=== PATIENT | female | born 1945 | race Asian ===

== ENCOUNTER 2022-10-02 09:17 | Outpatient (REF) | payer MEDICARE, OTHER, SELFPAY ==
--- NOTE | ~2022-10-02 | XR_ITS ---
EXAMINATION: XR HAND, BILATERAL CLINICAL INFORMATION: Pain. COMPARISON: None. TECHNIQUE: Left hand 3 views. Right hand 4 views. FINDINGS: Left Hand: There is a screw traversing the 1st IP joint. Hardware is intact. The joint space is not clearly visualized from marked narrowing/bony bridging. No evidence of acute fracture or dislocation. Postsurgical changes with lucencies in the distal radius. Nonunited ulnar styloid fracture fragment. Ulnar positive variance. There is arthritis present. Mild left and moderate radiocarpal arthritis. Severe triscaphe joint arthritis. Arthritis in the IP and DIP joints of fingers, with joint space narrowing, more prominent changes in the fifth DIP joint. No abnormal soft tissue calcification. Right Hand: Orthopedic hardware in the distal radius. Intact hardware. No evidence of acute fracture or dislocation is seen. Arthritis present. Moderate radiocarpal arthritis. Distal radioulnar articulation arthritis. Ulnar-positive variance. There is arthritis in the PIP and DIP joints of the fingers, more prominent changes in the third DIP joint, with joint space narrowing, small marginal osteophytes. Small chronic-appearing ossifications around the 3rd DIP joint. No marginal erosions seen. XR/XR hand RT min 3V IMPRESSION: LEFT HAND: *Postsurgical changes of the 1st IP joint. Marked joint space narrowing/bony fusion at the IP joint. *Arthritis present, with the appearance more suggestive of posterior arthritis, detailed above. *Nonunited ulnar styloid fracture. *No acute fracture or dislocation. RIGHT HAND: *No acute fracture or dislocation. *Arthritis present with the appearance suggestive of osteoporosis.
--- NOTE | ~2022-10-02 | XR_ITS ---
EXAMINATION: X-RAY BILATERAL SHOULDERS CLINICAL INFORMATION: Bilateral shoulder pain COMPARISON: None TECHNIQUE: Right shoulder 3 views. Left shoulder 4 views. FINDINGS: Right shoulder: No acute fracture or dislocation. Mild acromioclavicular arthritis. Glenohumeral joint space is maintained. Greater trochanteric spurring. No suspicious lung findings. Radiodense wires projected over the thoracic spine. Left shoulder: No acute fracture or dislocation. Moderate glenohumeral joint arthritis. Mild-moderate acromioclavicular arthritis. Few faint densities projected superior to the humeral head, could represent loose bodies, calcific tendinitis. Visualized left lung is clear.. XR/XR shoulder LT min 2V IMPRESSION: Right Shoulder: Mild acromioclavicular arthritis. No acute findings. Left shoulder: Moderate glenohumeral joint arthritis. Mild-moderate acromioclavicular arthritis. Faint densities projected superior to the humeral head could represent loose bodies versus calcific tendinitis.
--- NOTE | ~2022-10-02 | XR_ITS ---
EXAMINATION: X-RAY BILATERAL SHOULDERS CLINICAL INFORMATION: Bilateral shoulder pain COMPARISON: None TECHNIQUE: Right shoulder 3 views. Left shoulder 4 views. FINDINGS: Right shoulder: No acute fracture or dislocation. Mild acromioclavicular arthritis. Glenohumeral joint space is maintained. Greater trochanteric spurring. No suspicious lung findings. Radiodense wires projected over the thoracic spine. Left shoulder: No acute fracture or dislocation. Moderate glenohumeral joint arthritis. Mild-moderate acromioclavicular arthritis. Few faint densities projected superior to the humeral head, could represent loose bodies, calcific tendinitis. Visualized left lung is clear.. XR/XR shoulder RT min 2V IMPRESSION: Right Shoulder: Mild acromioclavicular arthritis. No acute findings. Left shoulder: Moderate glenohumeral joint arthritis. Mild-moderate acromioclavicular arthritis. Faint densities projected superior to the humeral head could represent loose bodies versus calcific tendinitis.
--- NOTE | ~2022-10-02 | XR_ITS ---
EXAMINATION: XR HAND, BILATERAL CLINICAL INFORMATION: Pain. COMPARISON: None. TECHNIQUE: Left hand 3 views. Right hand 4 views. FINDINGS: Left Hand: There is a screw traversing the 1st IP joint. Hardware is intact. The joint space is not clearly visualized from marked narrowing/bony bridging. No evidence of acute fracture or dislocation. Postsurgical changes with lucencies in the distal radius. Nonunited ulnar styloid fracture fragment. Ulnar positive variance. There is arthritis present. Mild left and moderate radiocarpal arthritis. Severe triscaphe joint arthritis. Arthritis in the IP and DIP joints of fingers, with joint space narrowing, more prominent changes in the fifth DIP joint. No abnormal soft tissue calcification. Right Hand: Orthopedic hardware in the distal radius. Intact hardware. No evidence of acute fracture or dislocation is seen. Arthritis present. Moderate radiocarpal arthritis. Distal radioulnar articulation arthritis. Ulnar-positive variance. There is arthritis in the PIP and DIP joints of the fingers, more prominent changes in the third DIP joint, with joint space narrowing, small marginal osteophytes. Small chronic-appearing ossifications around the 3rd DIP joint. No marginal erosions seen. XR/XR hand LT min 3V IMPRESSION: LEFT HAND: *Postsurgical changes of the 1st IP joint. Marked joint space narrowing/bony fusion at the IP joint. *Arthritis present, with the appearance more suggestive of posterior arthritis, detailed above. *Nonunited ulnar styloid fracture. *No acute fracture or dislocation. RIGHT HAND: *No acute fracture or dislocation. *Arthritis present with the appearance suggestive of osteoporosis.
[2022-10-02 11:23] LABS: MANUAL DIFF FLAG NO
[2022-10-02 11:46] LABS: Basophils Percent Auto 0.6 % (0-2); Eosinophils Absolute Auto 0.5 X10*3/uL (0.0-0.4); Eosinophils Percent Auto 7.6 % (0-4); Hematocrit 31.7 % (37.0-47.0); Hemoglobin 10.5 g/dl (12.0-16.0); Imm Gran Abs Auto 0.02 X10*3/uL (0.00-0.03); Imm Gran Pct Auto 0.3 % (0.0-0.4); Lymphocytes Absolute Auto 2.1 X10*3/uL (1.2-4.9); Lymphocytes Percent Auto 32.5 % (20-40); Mean Corpuscular HGB Conc 33.1 g/dl (31.0-35.0); Mean Corpuscular Volume 99.7 fL (80.0-98.0); Mean Platelet Volume 9.2 fL (9.4-12.3); Monocytes Absolute Auto 0.7 X10*3/uL (0.1-1.2); Neutrophils Absolute Auto 3.2 x10*3/uL (2.0-8.3); Platelet Count 302 X10*3/uL (160-400); Red Blood Count 3.18 X10*6/uL (4.20-5.50); Red Cell Distribution Width 12.9 % (11.0-16.0); White Blood Count 6.5 X10*3/uL (4.8-10.8)
[2022-10-02 12:28] LABS: Alanine Aminotransferase 14 U/L (0-31); Alkaline Phosphatase 99 U/L (39-117); Anion Gap 11 (12-20); Aspartate Amino Transferase 29 U/L (5-31); Bilirubin Total 0.5 mg/dL (0.0-1.0); Blood Urea Nitrogen 30 mg/dL (9-16); C Reactive Protein < 0.10 mg/dL (< or = 0.50); Calcium 10.3 mg/dL (8.4-10.2); Carbon Dioxide 24 mmol/L (22-29); Chloride 110 mmol/L (96-108); Estimated Glomerular Filt Rate 47; Glucose Random 88 mg/dL (60-115); Potassium 4.4 mmol/L (3.3-5.1); Sodium 141 mmol/L (135-145); Total Protein 6.7 g/dL (6.5-8.0)
[2022-10-02 12:29] LABS: Erythrocyte Sedimentation Rate 34 MM/HR (0-20)
[2022-10-02 13:18] LABS: Rheumatoid Factor < 13.0 IU/mL (<15.0)
[2022-10-06 14:19] LABS: Cyclic Citrullinated Peptide <16 UNITS
== END 2022-10-02 09:18 | disposition home or self-care (01) ==
LOC: HO.XRAY 09:17
PROVIDERS: PCP Internal Medicine; Visit Provider Nurse Practitioner Family
DX: M79.641 Pain in right hand (principal); M79.642 Pain in left hand; M25.511 Pain in right shoulder; M25.512 Pain in left shoulder
CPT/HCPCS: 36415; 73030; 73130; 80053; 85025; 85652; 86140; 86200; 86431; 99202

== ENCOUNTER → 2022-11-03 11:48 | Outpatient (BNVA) | payer MEDICARE, OTHER, SELFPAY | PROVIDERS: PCP Internal Medicine; Visit Provider Nurse Practitioner Family | DX: M19.011 Primary osteoarthritis, right shoulder (principal) | CPT/HCPCS: 20610 ==